=== PATIENT | female | born 1975 | race Caucasian/White ===

== ENCOUNTER 2018-03-02 22:05 | Emergency (ER) | payer MEDICARE, MEDICAID ==
[2018-03-02] MEDS: MORPHINE SULFATE 10 MG/ML VIAL. SQ (22:54)
== END 2018-03-02 23:10 | disposition home or self-care (01) ==
LOC: ER 22:05
DX: G89.29 Other chronic pain (principal); M54.2 Cervicalgia; F12.10 Cannabis abuse, uncomplicated; F15.10 Other stimulant abuse, uncomplicated; J44.9 Chronic obstructive pulmonary disease, unspecified; E11.9 Type 2 diabetes mellitus without complications; Z88.5 Allergy status to narcotic agent
CPT/HCPCS: 96372; 99283; J2270

== ENCOUNTER → 2018-04-24 | Outpatient (CLI) | payer MEDICARE, MEDICAID ==
[2018-04-28 14:03] LABS: MRSA BY PCR Negative (Negative)
== END | disposition home or self-care (01) ==
LOC: SURGPAT 13:23
DX: Z01.818 Encounter for other preprocedural examination (principal); M50.123 Cervical disc disorder at C6-C7 level with radiculopathy; E11.9 Type 2 diabetes mellitus without complications; J44.9 Chronic obstructive pulmonary disease, unspecified
CPT/HCPCS: 87641

== ENCOUNTER 2018-05-06 20:14 | Emergency (ER) | payer MEDICARE, MEDICAID | END 2018-05-06 21:15 | disposition home or self-care (01) | LOC: ER 20:14 | DX: G89.18 Other acute postprocedural pain (principal); M54.2 Cervicalgia; J44.9 Chronic obstructive pulmonary disease, unspecified; E11.9 Type 2 diabetes mellitus without complications; Z98.890 Other specified postprocedural states; Z96.659 Presence of unspecified artificial knee joint; Z88.8 Allergy status to other drugs, medicaments and biological substances | CPT/HCPCS: 99281 ==